=== PATIENT | male | born 1985 | race Caucasian/White ===

== ENCOUNTER 2017-10-06 01:48 | Emergency (ER) | payer OTHER ==
[~2017-10-06] VITALS: Ht 165.1 cm; Wt 81.6 kg
[2017-10-06 01:48] VITALS: BP_SYST 160
[2017-10-06 02:01] VITALS: BP_SYST 160
== END 2017-10-06 02:01 ==
LOC: SED 01:48
DX: Z53.21 Procedure and treatment not carried out due to patient leaving prior to being seen by health care provider (principal)